=== PATIENT | male | born 1975 ===

== ENCOUNTER 2017-08-12 05:35 | Inpatient (IN) | payer OTHER ==
[2017-08-12] VITALS (13 sets, daily range): BP systolic 106–137; BP diastolic 65–85
[~2017-08-12] VITALS: Ht 160 cm; Wt 86.2 kg
[~2017-08-12 05:35] MED LIST: NKM
[2017-08-12] MEDS ORDERED: Thrombin 5000 units spray kit TOPIC ONE (06:21)
[2017-08-12] MEDS ORDERED: Vancomycin 1gm inj IVPB ONE (06:21)
[2017-08-12] MEDS ORDERED: Thrombin 5000 units TOPIC ONE ×2 (06:22→06:23)
[2017-08-12] MEDS ORDERED: Bacitracin 50000 Units Vial ONE (06:23)
[2017-08-12] MEDS ORDERED: Gelfoam Absorbable 1gm powder pkt TOPIC ONE (06:23)
[2017-08-12] MEDS ORDERED: Phenylephrine 10mg/ml Vial ONE (06:39)
[2017-08-12] MEDS ORDERED: fentaNYL 100 mcg/2 mL IV ONE (06:43)
[2017-08-12] MEDS ORDERED: Midazolam 2mg/2ml Inj ONE (06:44)
[2017-08-12] MEDS ORDERED: Lidocaine 1% MPF 10mg/ml 5ml ONE (06:45)
[2017-08-12] MEDS ORDERED: Succinylcholine 20mg/ml 10ml vial ONE (06:53)
[2017-08-12] MEDS ORDERED: Zemuron 50mg/5ml Inj IV ONE (06:53)
[2017-08-12] MEDS ORDERED: NS Irrig 1000ml ONE (07:00)
[2017-08-12] MEDS ORDERED: Propofol 1,000mg/ 100ml btl IV ONE (07:00)
[2017-08-12] MEDS ORDERED: Sterile Water Irrig 1000ml IRRIG ONE (07:00)
[2017-08-12] MEDS ORDERED: ceFAZolin sod 2 GM in D5W 110 ML IVPB ONE (07:00)
[2017-08-12] MEDS ORDERED: LR 1000ml ONE (07:00)
--- NOTE | 2017-08-12 07:04 | Pre-Procedure Note/Attestation ---
Pre-Procedure Note/Attestation Complete Prior to Procedure Planned Procedure: not applicable Procedure Narrative: Cervical 56 artificial disc replacement Indications for Procedure Pre-Operative Diagnosis: C56 herniation Attestation I attest that I discussed the nature of the procedure; its benefits; risks and complications; and alternatives (and the risks and benefits of such alternatives ), prior to the procedure, with the patient (or the patient's legal pharmaceutical sales representative). I attest that, if there was a reasonable possibility of needing a blood transfusion, the patient (or the patient's legal pharmaceutical sales representative) was given the [facility] standardized written summary, pursuant to the Sergio Dazey Blood Safety Act ([place] Health and Safety Code # 1645, as amended). I attest that I re-evaluated the patient just prior to the surgery and that there has been no change in the patient's H&P, except as documented below: Glenroy Estevez MD Aug 12, 2017 07:04
--- NOTE | 2017-08-12 07:05 | Brief Operative Note ---
Immediate Post Operative Note Operative Note Chief Complaint: neck pain and radiculopathy Pre-op Diagnosis: C56 herniation Procedure: Cervical 56 artificial disc replacement Post-op Diagnosis: same as pre-op Findings: consistent w/pre-op dx studies Surgeon: Zenaida Violin Tutor: Tony Anesthesiologist: MERY Anesthesia: general Specimen: none Complications: none Condition: stable Fluids: IVF Estimated Blood Loss: none Drains: none Implant(s) used?: Yes - prodisc c sZ5 Glenroy Estevez MD Aug 12, 2017 07:05
[2017-08-12] MEDS ORDERED: Naloxone 0.4mg/ml Inj IVP PRN (07:15)
[2017-08-12] MEDS ORDERED: Morphine Sulfate 2mg/ml Inj IV PRN (07:15)
[2017-08-12] MEDS ORDERED: HYDROcodone/Acetamin 7.5/325 tab ORAL PRN ×2 (07:15)
[2017-08-12] MEDS ORDERED: Milk of Magnesia 30ml Ud ORAL PRN (07:15)
[2017-08-12] MEDS ORDERED: Chloraseptic Spray 20mL Bottle ORAL PRN (07:15)
[2017-08-12] MEDS ORDERED: Morphine Sulfate 4mg/ml Inj IV PRN ×2 (07:15)
[2017-08-12] MEDS ORDERED: Norco 5mg/325mg tab ORAL PRN (07:15)
[2017-08-12] MEDS ORDERED: Morphine Sulfate 10mg/ml Inj ONE (07:55)
[2017-08-12] MEDS ORDERED: Sodium Chloride 10ml vial INJ ONE (07:56)
[2017-08-12] MEDS ORDERED: Ketorolac 30mg Inj ONE (07:59)
[2017-08-12] MEDS ORDERED: Neostigmine 1mg/ml 10ml Inj ONE (07:59)
[2017-08-12] MEDS ORDERED: Glycopyrrolate 0.2mg/ml 1ml Vial ONE (07:59)
--- NOTE | 2017-08-12 08:12 | Anethesia Preoperative Eval ---
Anesthesia Pre-op PMH/ROS General Date of Evaluation: Aug 12, 2017 Time of Evaluation: 06:55 Anesthesiologist: Arthur ASA Score: ASA 2 Mallampati Score Class I : Soft palate, uvula, fauces, pillars visible Class II: Soft palate, uvula, fauces visible Class III: Soft palate, base of uvula visible Class IV: Only hard plate visible Mallampati Classification: Class III Surgeon: Zenaida Diagnosis: Cervical radiculopathy Surgical Procedure: ACDF C5-C6 Anesthesia History: none Family History: no anesthesia problems Allergies: Coded Allergies: No Known Allergies (Unverified , 08/11/17) Medications: see eMAR Past Medical History Cardiovascular: Denies: HTN, CAD, [place], valve dz, arrhythmia, other Pulmonary: Denies: asthma, COPD, HUMPHREY, other Gastrointestinal/Genitourinary: Reports: GERD; Denies: CRI, ESRD, other Neurologic/Psychiatric: Reports: other - chronic pain; Denies: dementia, CVA, depression/anxiety, TIA Endocrine: Denies: DM, hypothyroidism, steroids, other HEENT: Denies: cataract (L), cataract (R), glaucoma, [place] (L), [place] (R), other Hematology/Immune: Denies: anemia, DVT, bleeding disorder, other Musculoskeletal/Integumentary: Denies: OA, RA, DJD, DDD, edema, other Other: obesity PMH Narrative: as above PSxH Narrative: None Anesthesia Pre-op Phys. Exam Physician Exam Last Vital Signs Date Time Temp Pulse Resp B/P (MAP) Pulse Ox O2 Delivery O2 Flow Rate FiO2 08/12/17 06:37 98.0 76 20 134/84 100 Room Air 98.0 Constitutional: NAD Neurologic: CN 2-12 intact Cardiovascular: RRR, no M/R/G Respiratory: CTA Gastrointestinal: S/NT/ND Airway Exam Mallampati Score: Class III MO: limited Neck: short ROM: limited Teeth: missing, broken, other - poor oral hygeen, significant paradontosis Dentures: no upper, no lower Anesthesia Pre-op A/P Labs see chart Studies Pre-op Studies: EKG - NSR, CXR - WNL Risk Assessment & Plan Assessment: ASA 2 Plan: GA with ETT Neuromonitoring Status Change Before Surgery: No Pre-Antibiotics Drug: Ancef 2gr. Given Within 1 Hr of Incision: Yes Time Given: 07:46 Shaheed Gibson MD Aug 12, 2017 08:12
[2017-08-12] MEDS ORDERED: LR 1000ml 1,000 ML IVLG SCH (08:34)
[2017-08-12] MEDS ORDERED: Midazolam 2mg/2ml Inj IVP PRN (08:45)
[2017-08-12] MEDS ORDERED: Ketorolac 30mg Inj IV PRN (08:45)
[2017-08-12] MEDS ORDERED: Metoclopramide 10mg/2ml Inj IVP PRN (08:45)
[2017-08-12] MEDS ORDERED: DiphenhydrAMINE 50mg/ml Inj IVP PRN (08:45)
[2017-08-12] MEDS ORDERED: fentaNYL 100 mcg/2 mL IV PRN (08:45)
[2017-08-12] MEDS ORDERED: Meperidine 50mg/ml Inj(FOR RIGORS ONLY) IV PRN (08:45)
[2017-08-12] MEDS: Docusate 100mg cap ORAL SCH ×2 (09:00→18:09)
--- NOTE | 2017-08-12 09:34 | Immediate Post-Op Evaluation ---
Immediate Post-Op Evalulation Immediate Post-Op Evalulation Procedure: ACDF C5-C6 Date of Evaluation: Aug 12, 2017 Time of Evaluation: 09:33 IV Fluids: 1200 Blood Products: none Estimated Blood Loss: 200 Urinary Output: 300 Blood Pressure Systolic: 124 Blood Pressure Diastolic: 64 Pulse Rate: 78 Respiratory Rate: 22 O2 Sat by Pulse Oximetry: 98 Temperature (Fahrenheit): 97.8 Pain Score (1-10): 2 Nausea: No Vomiting: No Patient Status: reacts, patent, extubated, none Hydration Status: adequate Shaheed Gibson MD Aug 12, 2017 09:34
--- NOTE | 2017-08-12 10:15 | Diagnostic Imaging Report ---
Indication: Pain, intraoperative imaging Technique: Intraoperative images Comparison: none Findings: Intraoperative imaging demonstrates surgical tool projected at the anterior aspect of the C5-6 disc. Subsequent images demonstrate placement of a disc prosthesis at C5-6, appearing well aligned Impression: Intraoperative imaging, as described
[2017-08-12] MEDS: NS w/KCl 20mEq 1,000 ML IV SCH ×2 (12:29→21:56)
[2017-08-12] MEDS: Dexamethasone 4mg/ml vial IVP SCH ×2 (12:29→18:09)
[2017-08-12] MEDS: ceFAZolin sod 1 GM in D5W 110 ML IV SCH (16:43)
--- NOTE | 2017-08-12 17:00 | Operative Note - Dictated ---
DATE OF OPERATION: 08/12/2017 SURGEON: Glenroy Estevez MD, Orthopaedic Spine Surgeon. CONTROL SYSTEMS TECHNICIAN SURGEON: Samir Jimenez M.D. PREOPERATIVE DIAGNOSES: 1. Intractable neck pain. 2. Radiculopathy. 3. Herniation, C5-C6. 4. Neural foraminal stenosis, C5-C6. POSTOPERATIVE DIAGNOSES: 1. Intractable neck pain. 2. Radiculopathy. 3. Herniation, C5-C6. 4. Neural foraminal stenosis, C5-C6. PROCEDURE PERFORMED: 1. Anterior cervical discectomy and artificial disc replacement of C5-C6 using a Synthes ProDisc C, size 5 height 2. Use of intraoperative microscope. 3. Motor evoked potential monitoring. 4. Somatosensory evoked potential monitoring. 5. Supervision and interpretation of fluoroscopy. COMPLICATIONS: None. ANESTHESIA: General. ESTIMATED BLOOD LOSS: Less than 100 mL. INDICATIONS FOR SURGERY: This patient is a 42-year-old male who has a history of diagnoses as listed above. As of result of this, the patient sustained intractable neck pain; radiculopathy; herniation, C5-C6; and neural foraminal stenosis, C5-C6. We tried a course of conservative management but despite this course there was still a significant component of persistent, recalcitrant neck pain and arm pain. The MRI demonstrated significant neural foraminal compromise secondary to disc herniations at C5-C6. We had a long discussion with Js regarding the risks and benefits of surgery. Our discussion included but was not limited to nonoperative management, chiropractic management, another epidural steroid injection as well definitive management in the form of surgery. We recommended an artificial disc replacement of C5-C6 as final definitive management. We reviewed the risks and benefits of surgery with the patient. Our discussion included a comprehensive review of the clinical issues and the nature of the clinical decision. We reviewed the alternatives, including doing nothing. The patient elected to proceed accordingly with an artificial disc replacement of C5-C6. We had a long discussion regarding the risks, alternatives and benefits of surgery. Our description of the risks included a discussion in person as well as a signed consent which detailed all pertinent risks from the procedure itself. Briefly, our discussion included but was not limited to infection, bleeding, pseudarthrosis, spinal cord injury, neurovascular injury, dural tear, CSF leak, neuropathy, paralysis, permanent weakness/drop foot/drop arm, paresthesias, blindness, palsy and weakness. The patient understood there may be a need for a revision surgery or additional procedures. Approach-related complications including dysphonia, dysphagia, blindness, permanent vocal cord and neural injury, hematoma, swallowing and breathing difficulty. Medical complications were reviewed including liver, kidney, shock, cardiopulmonary failure, anesthesia complications including , swelling, damage to the musculature, larynx/voice injury or loss, esophagus/throat, trachea, blood vessels and muscles/muscular sprain and lungs/pneumothorax during this surgical procedure; injury to deeper structures may be temporary or permanent. After this review of risks, the patient understood these and elected to proceed. A written and verbal consent was given. We discussed the pros and cons of all the alternatives. We discussed the uncertainties associated with the decision. Afterwards I assessed the patient's understanding and explored their preferences. All questions were answered and no guarantees were given. Medical clearance was obtained prior to surgery. INTRAOPERATIVE FINDINGS: A discrete disc herniation which was found posterior to an obvious tear in the posterior longitudinal ligament at C5-C6. This was causing a considerable amount of neural foraminal stenosis with significant encroachment on the neural foramina and spinal cord which was being impinged as a result of this pressure. Upon inspection of the interspace at C5-C6, I noticed a rent in the posterior longitudinal ligament or PLL. Upon inspection of this tear once it was mobilized with Kerrison rongeurs, there was a disc fragment and herniation causing encroachment on the neural foramina and spinal cord posterior to the PLL. This was resected as well which caused some noted relief on the underlying neural elements. DESCRIPTION OF PROCEDURE: Under the benefit of general endotracheal anesthesia and with the assistance of the entire operative team, the patient was moved from the [facility] onto the operative table in the supine position. The head was secured and carefully positioned appropriately. Bilateral arms were secured with GelPads and foam and all bony prominences were padded. For the bilateral lower extremities SCD and LISETTE hose were placed for DVT prophylaxis. A surgical timeout was called, which corroborated our planned procedure of artificial disc replacement. Preoperative antibiotics were administered within 30 minutes of the incision for antibiotic prophylaxis. Using lateral fluoroscopic radiography, the operative levels were delineated. Next the wound was prepped and draped with Chlorhexidine and sterile drapes. An incision was based on lateral fluoroscopy and we centered our incision at the C5-C6. Interspace and next using a standard Mei-Olivier anterior based approach the incision was taken down through the skin and subcutaneous tissues until the vertebral bodies and their corresponding disc spaces were visualized. A needle was placed into the interspace to confirm placement of the operative interspace and we performed the remainder of procedure under microscopic visualization. Next, using a bipolar and Bovie cautery to ensure meticulous hemostasis, the longus colli was mobilized bilaterally and retractors were placed deep to the longus colli bilaterally to address retraction. Next we turned our attention to the radical anterior discectomy. This was initially performed at C5-C6 first by using a 15 blade scalpel followed by narrow pituitaries, and a Microsect 5-B curette was used to denude the endplate of all cartilaginous tissue. Next using a Datavolution AM8 drillbit, the vertebral endplates were denuded is a [id number]-[id number] and dosbg-iu-svhmy fashion, and ultimately the posterior uncinate joints bilaterally were carefully denuded until visualization of the posterior longitudinal ligament was possible. An endplate preparation was performed in the exact same fashion using an intervertebral addiction social worker, sequential distraction was obtained throughout the disc space. We saw a tear/rent in the PLL and this was carefully mobilized and dissected using a Microsect 1-B curet until we visualized a discrete disc herniation with compression of the spinal cord as well as neural foramina C5-C6, which was right more than left sided. This neural foraminal compression was carefully resected using a Kerrison-1 and Kerrison-2 rongeurs until complete decompression of the spinal cord was visualized and complete decompression of the neural foramina and nerve root therein as well as the axilla and lateral margin of the nerve root was visualized and subsequently completely decompressed. The family was notified at one hour intervals throughout the procedure to provide for consistent updates. We next turned our attention towards trialing our implant within the disc space. We initially tried size 5 and this ProDisc Cervical spacer fit well in regards to depth and width. This implant was opened and prepared. Next under direct visualization, I confirmed excellent fit in respect to the anterior and posterior vertebral bodies, the uncinate joints and in regards to toggle. Once satisfied with this placement on serial AP and lateral fluoroscopy I turned my attention towards cutting our bharati. These were cut in the bones using a reciprocating drill and afterwards all free fragments of bone were irrigated. Next FloSeal was placed into the interspace, then removed in its entirety and the implant was inserted using fluoroscopic guidance. Next the Synthes ProDisc C size 5 ADR was then carefully advanced and secured into the intervertebral space under direct visualization and with supervision of AP and lateral fluoroscopic views. After a finger sweep we confirmed removal of all sponges. The retractor was removed and we next turned our attention to meticulous hemostasis with FloSeal and bipolar cautery. After the sponge and needle count was again found to be correct with our second count, we next turned our attention to closure. The wound was again copiously irrigated with antibiotic impregnated saline Closure consisted of 4-0 clear nylon for the platysma, and 5-0 clear nylon for the superficial skin. Final skin closure and dressings consisted of Dermabond. Prior to final closure, a final radiograph was obtained which demonstrated the hardware is intact with excellent position throughout. The patient tolerated the procedure well. The patient was carefully extubated after the conclusion of surgery. We discussed the findings of the surgery with the family upon completion of the case. At this point the patient was transferred to the spine floor for further observation. Glenroy Estevez M.D. DR: KIMBERLYN JOB#: [id number] CC:
[2017-08-13] VITALS: BP 127/66
[2017-08-13] MEDS: ceFAZolin sod 1 GM in D5W 110 ML IV SCH ×2 (00:37→09:15)
[2017-08-13] MEDS: Dexamethasone 4mg/ml vial IVP SCH ×2 (00:38→05:10)
[2017-08-13 04:00] VITALS: BP 128/66
[2017-08-13] MEDS: NS w/KCl 20mEq 1,000 ML IV SCH (05:10)
[2017-08-13 08:00] VITALS: BP 127/71
--- NOTE | 2017-08-13 08:38 | 48 Hour Post Anesthesia Eval ---
Post Anesthesia Evaluation Procedure: ACDF C5-C6 Date of Evaluation: Aug 13, 2017 Time of Evaluation: 04:00 Blood Pressure Systolic: 128 0: 66 Pulse Rate: 78 Respiratory Rate: 19 Temperature (Fahrenheit): 97.1 O2 Sat by Pulse Oximetry: 97 Airway: patent Nausea: No Vomiting: No Pain Intensity: 0 Hydration Status: adequate Mental Status/LOC: patient returned to baseline Post-Anesthesia Complications: none Follow-up care needed: N/A Millicent Nguyen M.D. Aug 13, 2017 08:38
[2017-08-13] MEDS: Docusate 100mg cap ORAL SCH (09:15)
[2017-08-13 12:49] VITALS: BP 134/75
[2017-08-13] MEDS ORDERED: NORCO 10-325 T1 EACH ORAL (14:10)
--- NOTE | 2017-08-13 16:45 | Discharge Summary ---
DATE OF ADMISSION: 08/12/2017 DATE OF DISCHARGE: 08/13/2017 PROCEDURE PERFORMED DURING ADMISSION: C5-C6 artificial disk replacement. REASON FOR ADMISSION: Herniation, C5-C6. HOSPITAL COURSE/TREATMENT RENDERED: DISCHARGE PHYSICAL EXAM: 1. The patient was ambulating with and without the assistance of physical therapy. 2. Prior to discharge home, incision was clean and dry with minimal swelling. 3. Follows commands. 4. Alert and oriented. 5. Delacruz discontinued, voiding. 6. Incentive spirometer at bedside. 7. IVF hep-locked MOTOR: Demonstrates expected postoperative bulk and tone. Moves biceps, triceps, and deltoid musculature on command. Moves hip flexors, quadriceps, tibialis anterior, EHL, gastrocsoleus musculature on command as well. TREATMENT RENDERED: 1. Daily nursing care. 2. Physical therapy. 3. Occupational therapy. 4. Intravenous medications. 5. Oral medications. 6. Daily postoperative examinations by Spine Surgery team. CONDITION OF PATIENT ON DISCHARGE: The condition on discharge is stable for discharge to home. DISCHARGE INSTRUCTIONS: Our specific instructions relating to physical activity, medications, diet, and follow-up care are detailed in our standard operative folder and were given to this patient prior to surgery. We will however summarize these briefly as stated below. Regarding physical activity, we would like the patient to limit their flexion, extension, and rotation. We also require a limitation on their bending, lifting, and twisting. All medication has been called in prior to surgery to their pharmacy of choice. They can resume their regular diet once tolerated. We would like them to shower and limit soaking the wound in a tub/Jacuzzi/the ocean for a period of one month or until the incision is completely healed. We will have them follow up in our office in three weeks' time for their regularly scheduled appointment. They understand to call our office tomorrow to schedule the time for their three-week followup appointment. The patient will notify us should they experience any increase in the severity of pain, redness, swelling, or drainage from their incision. Glenroy Estevez M.D. DR: Bandar JOB#: [id number] CC:
== END 2017-08-13 15:50 | disposition home or self-care (01) | DRG 518 ==
LOC: SDSOVERFLO 05:35 → 3E 10:30
DX: M50.122 Cervical disc disorder at C5-C6 level with radiculopathy (principal); M48.02 Spinal stenosis, cervical region; E66.9 Obesity, unspecified; Z68.33 Body mass index [BMI] 33.0-33.9, adult; R03.0 Elevated blood-pressure reading, without diagnosis of hypertension
CPT/HCPCS: 36415; 72040; 76001; 86850; 86900; 86901; 87081; 94003; 94150; J2250; J2370; J2710